=== PATIENT | male | born 1940 | race Caucasian/White ===

== ENCOUNTER 2022-07-23 15:55 | Emergency (ER) | payer OTHER ==
[2022-07-23 17:24] LABS: HEMATOCRIT 43.9 % (35.4-49); HEMOGLOBIN 15.2 G/dL (11.7-16.9); MCH 32.7 pg (25.7-33.7); MCHC 34.5 g/dl (32.0-35.9); MEAN CELL VOLUME 94.7 fl (80-96); MEAN PLT VOLUME 8.6 fl (7.5-11.1); PLATELET COUNT 224.4 10^3/uL (134-434); RBC 4.64 10^6/uL (4.00-5.60); RDW 13.9 % (11.9-15.9); WHITE BLOOD COUNT 8.2 10^3/uL (4.0-10.8)
[2022-07-23 17:25] VITALS: BP 140/80; PULSE 97; RESP 18; TEMP 98.7; BMI 124.3
[2022-07-23 17:33] LABS: ALBUMIN 4.5 g/dl (3.4-5.0); BILIRUBIN,TOTAL 1.2 mg/dl (0.2-1); CALCIUM 9.5 mg/dl (8.5-10); POTASSIUM 3.9 mmol/L (3.5-5.1); TOT PROT 7.4 g/dl (6.4-8.2)
[2022-07-23 18:25] LABS: PLATELET ESTIMATE ADEQUATE
== END 2022-07-23 18:28 | disposition home or self-care (01) ==
LOC: FER 15:55
DX: R07.9 Chest pain, unspecified (principal)
CPT/HCPCS: 36415; 71046-TC-FY; 80053; 84484; 85027; 93005; 99285-25